=== PATIENT | male | born 1950 ===

== ENCOUNTER 2021-09-20 06:37 | Day surgery (SDC) | payer OTHER | END 2021-09-20 15:17 | disposition home or self-care (01) | LOC: AMB-ENDOS 06:37 → CIR.AMB 09:00 → AMB-ENDOS 15:17 | PROVIDERS: ATTEND Surgery | DX: D12.5 Benign neoplasm of sigmoid colon (principal); D37.4 Neoplasm of uncertain behavior of colon; Z20.822 Contact with and (suspected) exposure to COVID-19 ==